=== PATIENT | female | born 1995 | race Caucasian/White ===

== ENCOUNTER 2017-06-13 19:31 | Emergency (ER) | payer OTHER ==
[~2017-06-13] VITALS: Ht 162.6 cm; Wt 109.3 kg
[2017-06-13 19:43] VITALS: BP 118/75
--- NOTE | 2017-06-13 20:15 | NUR ---
PT. AMBULATES TO ER BED 12
[2017-06-13] MEDS ORDERED: KETOROLAC 30 MG/ML VIAL IM ONE (20:30)
--- NOTE | 2017-06-13 20:30 | NUR ---
Patient being evaluated by HERMELINDO NICHOLS at bedside.
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
--- NOTE | 2017-06-13 21:25 | NUR ---
Patient discharged with v/s stable. Written and verbal after care instructions given and explained. Patient alert, oriented and verbalized understanding of instructions. Ambulatory with steady gait. All questions addressed prior to discharge. ID band removed. Patient advised to follow up with PMD. Rx of FLEXERIL 10 MG, NAPROSYN 500 MG given. Patient educated on indication of medication including possible reaction and side effects. Opportunity to ask questions provided and answered.
[2017-06-13 21:32] VITALS: BP 113/67
== END 2017-06-13 21:25 | disposition home or self-care (01) ==
LOC: MED 19:31
DX: M79.602 Pain in left arm (principal); R07.89 Other chest pain; R20.0 Anesthesia of skin
CPT/HCPCS: 81025; 93005; 96372; 99283; J1885

== ENCOUNTER 2017-07-13 19:38 | Emergency (ER) | payer OTHER ==
[~2017-07-13] VITALS: Ht 157.5 cm; Wt 110.0 kg
[2017-07-13 20:03] VITALS: BP 119/74
--- NOTE | 2017-07-13 21:38 | NUR ---
Patient returned from US, transferred to OF3 for further care. RN evaluating patient at bedside.
[2017-07-13 22:06] LABS: BASOPHILS # (AUTO) 0.5 K/uL (0.00-0.22); EOSINOPHILS # (AUTO) 0.1 K/uL (0-0.4); HEMATOCRIT 40.6 % (36-48); HEMOGLOBIN 13.2 g/dL (12.0-16.0); LYMPHOCYTES # (AUTO) 1.9 K/uL (2.5-16.5); MEAN CORPUSCULAR HEMOGLOBIN 27 pg (27-31); MEAN CORPUSCULAR HGB CONC 33 g/dL (33-37); MEAN CORPUSCULAR VOLUME 83 fL (80-94); MONOCYTES # (AUTO) 0.8 K/uL (0.8-1.0); NEUTROPHILS # (AUTO) 6.3 K/uL (1.8-7.7); PLATELET COUNT (AUTO) 211 K/uL (140-450); RED BLOOD CELL COUNT(AUTO) 4.88 MIL/uL (4.20-5.40); RED CELL DISTRIBUTION WIDTH 13.3 % (11.6-13.7); WHITE BLOOD COUNT (AUTO) 9.6 K/uL (4.8-10.8)
[2017-07-13 22:16] LABS: APPEARANCE,URINE SL CLOUDY (CLEAR); BILIRUBIN,URINE NEGATIVE (NEGATIVE); BLOOD, URINE NEGATIVE (NEGATIVE); COLOR,URINE YELLOW (YELLOW); LEUKOCYTE ESTERASE ,URINE NEGATIVE (NEGATIVE); NITRITE, URINE NEGATIVE (NEGATIVE); PH,URINE 6.5 (5.0-9.0); UGLUCOSE NEGATIVE (NEGATIVE)
[2017-07-13 22:25] LABS: ANION GAP 14.1 (8-16); CARBON DIOXIDE 25.9 mmol/L (21-32); CREATININE 0.6 mg/dL (0.6-1.3)
[2017-07-13 22:30] LABS: ALBUMIN 3.8 g/dL (3.4-5.0); TOTAL BILIRUBIN 0.2 mg/dL (0.0-1.0)
[2017-07-13 22:41] LABS: RBC,URINE 0-5 (RARE) /HPF (0-5); WBC,URINE 0-5 (RARE) /HPF (0-5)
--- NOTE | 2017-07-13 22:41 | NUR ---
Patient transferred to bed 2 for further care. RN evaluating patient at bedside.
--- NOTE | 2017-07-13 22:45 | NUR ---
21/F CAME IN WITH C/O VAGINAL BLEEDING, LOWER ABD CRAMPING X YESTERDAY. NO ACTIVE BLEEDING AT THIS TIME. PT REPORT SHE IS 8 WEEKS , . DENIES N/V A THIS TIME. ALL LUNG SOUNDS CBTA, 18RR, EVEN AND UNLABORED. 92HR EVEN AND REGULAR. DENIES OBGYN FOLLOWING HER RIGHT NOW. DENIES OTHER PMH/RX/OTC
--- NOTE | 2017-07-13 22:50 | NUR ---
Pelvic exam performed by DR JOSE with GARY at bedside for entire examination. Patient tolerated procedure WELL. Patient assisted to position of comfort after examination.
[2017-07-14 00:30] VITALS: BP 126/74
--- NOTE | 2017-07-14 00:30 | NUR ---
Patient discharged with v/s stable. Written and verbal after care instructions given and explained. Patient verbalized understanding. Ambulatory with steady gait. All questions addressed prior to discharge. Advised to follow up with PMD.
[2017-07-19 07:27] LABS: CHLAMYDIA TRACHOMATIS AMP DNA Negative (Negative)
== END 2017-07-14 00:30 | disposition home or self-care (01) ==
LOC: MED 19:38
DX: O20.0 Threatened abortion (principal); Z3A.01 Less than 8 weeks gestation of pregnancy
CPT/HCPCS: 36415; 76817; 80053; 81001; 81025; 84702; 85025; 86900; 86901; 87086; 87210; 99285; Q0092; 87491

== ENCOUNTER 2018-09-22 17:24 | Emergency (ER) | payer OTHER ==
[~2018-09-22] VITALS: Ht 162.6 cm; Wt 111.1 kg
[2018-09-22 17:31] VITALS: BP 129/71
--- NOTE | 2018-09-22 17:36 | NUR ---
VSS; PT NOT IN DISTRESS; PROVIDED URINE SAMPLE; AMBULATED TO LOBBY
--- NOTE | 2018-09-22 18:11 | NUR ---
PT AMBULATED TO BED 7 AT THIS TIME
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
[2018-09-22] MEDS ORDERED: KETOROLAC 60 MG/2 ML VIAL IM ONE (18:20)
[2018-09-22 18:36] VITALS: BP 135/72
== END 2018-09-22 18:36 | disposition home or self-care (01) ==
LOC: MED 17:24
DX: M25.511 Pain in right shoulder (principal); R07.89 Other chest pain
CPT/HCPCS: 81025; 96372; 99283; J1885

== ENCOUNTER 2018-12-10 21:23 | Emergency (ER) | payer OTHER ==
[~2018-12-10] VITALS: Ht 160 cm; Wt 113.0 kg
[2018-12-10 21:28] VITALS: BP 109/60
--- NOTE | 2018-12-10 21:28 | NUR ---
TO BED # 03 AMBULATORY
--- NOTE | 2018-12-10 21:37 | NUR ---
23/F PRESENTS TO ED. PT REPORTS BEING 15 WEEKS , A0. C/O 9/10 INTERMITTENT CRAMPING LOWER ABD/SUPRAPUBIC PAIN, X3 WEEKS. PT REPORTS VAGINAL SPOTTING X2 DAYS, CONTROLLED AT THIS TIME. PT REPORTS INTERMITTENT CHILLS AND DROWSINESS THROUGHOUT . DENIES FEVER, N/V/D, CONSTIPATION OR DYSURIA. AOX4, RR EVEN AND UNLABORED. LUNG SOUNDS CLEAR BL. BS ACTIVE X4, ABD SOFT ROUND AND MILDLY TENDER TO LOWER QUADRANTS/SUPRAPUBIC. DENIES MED HX. RX IRON AND VITAMINS
--- NOTE | 2018-12-10 21:38 | NUR ---
Dr. Bañuelos evaluating patient at bedside.
--- NOTE | 2018-12-10 21:45 | NUR ---
US AT BEDSIDE
[2018-12-10 21:48] LABS: APPEARANCE,URINE CLEAR (CLEAR); BILIRUBIN,URINE NEGATIVE (NEGATIVE); BLOOD, URINE NEGATIVE (NEGATIVE); COLOR,URINE YELLOW (YELLOW); LEUKOCYTE ESTERASE ,URINE 1+ (NEGATIVE); NITRITE, URINE NEGATIVE (NEGATIVE); UGLUCOSE NEGATIVE (NEGATIVE)
[2018-12-10 21:49] LABS: BASOPHILS % (AUTO) 0.2 % (0.0-2.0); EOSINOPHILS # (AUTO) 0.1 K/uL (0-0.4); EOSINOPHILS % (AUTO) 1.8 % (0.0-4.0); HEMATOCRIT 35.4 % (36-48); LYMPHOCYTES % (AUTO) 25.4 % (20.5-51.1); MEAN CORPUSCULAR HEMOGLOBIN 28 pg (27-31); MEAN CORPUSCULAR HGB CONC 34 g/dL (33-37); MEAN CORPUSCULAR VOLUME 81.4 fL (80-94); MONOCYTES # (AUTO) 0.5 K/uL (0.8-1.0); MONOCYTES % (AUTO) 6.6 % (1.7-9.3); NEUTROPHILS # (AUTO) 5.3 K/uL (1.8-7.7); PLATELET COUNT (AUTO) 202 K/uL (140-450); RED BLOOD CELL COUNT(AUTO) 4.35 MIL/uL (4.20-5.40); RED CELL DISTRIBUTION WIDTH 16.1 % (11.6-13.7)
--- NOTE | 2018-12-10 21:51 | NUR ---
Note undone in EDM - 12/11/18 at 0044 by YEIMY DISCHARGE PAPERS GIVEN TO PT. 11/01 PAIN BUT TOLLERABLE. VSS. RX OF MACROBID GIVEN. SIDE EFFECTS EXPLAINED. INSTRUCTED TO F/U WITH PCP AND OBGYN AND WHEN TO RETURN TO ER. PT VERBALLIZED UNDERSTANDING OF DC INSTRUCTIONS. ALL QUESTIONS ANSWERED. CONTINUE TO MONITOR.
[2018-12-10 21:58] LABS: RBC,URINE 0 /HPF (0-5)
[2018-12-10 22:11] LABS: PROTHROMBIN TIME 9.3 secs (10.8-13.4)
[2018-12-10 22:51] VITALS: BP 104/43
--- NOTE | 2018-12-10 22:51 | NUR ---
DISCHARGE PAPERS GIVEN TO PT. 11/01 PAIN BUT TOLLERABLE. VSS. RX OF MACROBID GIVEN. SIDE EFFECTS EXPLAINED. INSTRUCTED TO F/U WITH PCP AND OBGYN AND WHEN TO RETURN TO ER. PT VERBALLIZED UNDERSTANDING OF DC INSTRUCTIONS. ALL QUESTIONS ANSWERED. CONTINUE TO MONITOR.
== END 2018-12-10 21:51 | disposition home or self-care (01) ==
LOC: MED 21:23
DX: O20.0 Threatened abortion (principal); O23.42 Unspecified infection of urinary tract in pregnancy, second trimester; Z3A.15 15 weeks gestation of pregnancy
CPT/HCPCS: 36415; 76805; 81001; 81025; 84702; 85025; 85610; 85730; 87086; 99284; Q0092

== ENCOUNTER 2021-09-17 08:54 | Emergency (ER) | payer OTHER ==
[~2021-09-17] VITALS: Ht 157.5 cm; Wt 104.3 kg
[2021-09-17 08:55] VITALS: BP 136/87
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
[2021-09-17] MEDS ORDERED: IBUP-1842 PO (09:48)
[2021-09-17] MEDS ORDERED: ACET-10509 PO (09:48)
[2021-09-17] MEDS: IBUPROFEN 400 MG TAB PO ONE (09:52)
[2021-09-17] MEDS: ACETAMINOPHEN EXTRA STRENGTH 500 MG TAB PO ONE (09:52)
--- NOTE | 2021-09-17 09:52 | NUR ---
sin at bedside with pt at this time
[2021-09-17] MEDS: BACITRACIN OINT 500 UNITS/GM PKT TP ONE (10:19)
--- NOTE | 2021-09-17 10:20 | NUR ---
Patient discharged with v/s stable. Written and verbal after care instructions given and explained. Patient alert, oriented and verbalized understanding of instructions. Ambulatory with steady gait. All questions addressed prior to discharge. ID band removed. Patient advised to follow up with PMD. Rx of ibuprofen, tylenol (sent) given. Patient educated on indication of medication including possible reaction and side effects. Opportunity to ask questions provided and answered. work note given
[2021-09-17 10:21] VITALS: BP 136/87
== END 2021-09-17 10:21 | disposition home or self-care (01) ==
LOC: MED 08:54
DX: S01.21XA Laceration without foreign body of nose, initial encounter (principal); Z79.899 Other long term (current) drug therapy; W22.8XXA Striking against or struck by other objects, initial encounter; Y93.89 Activity, other specified; Y92.89 Other specified places as the place of occurrence of the external cause; Y99.8 Other external cause status
CPT/HCPCS: 99284